=== PATIENT | female | born 1975 | race Caucasian/White ===

== ENCOUNTER 2021-06-28 20:39 | Emergency (ER) | payer OTHER | END 2021-06-28 21:59 | disposition home or self-care (01) | LOC: FER 20:39 | DX: Z48.03 Encounter for change or removal of drains (principal); Z88.5 Allergy status to narcotic agent; Z88.2 Allergy status to sulfonamides; Z88.8 Allergy status to other drugs, medicaments and biological substances | CPT/HCPCS: 99283 ==